=== PATIENT | male | born 1965 | race Caucasian/White ===

== ENCOUNTER 2019-05-03 07:32 | Day surgery (SDC) | payer OTHER ==
[2019-05-03] MEDS ORDERED: LIDOCAINE 2% (SDV) 5 ML INJ (10:36)
[2019-05-03] MEDS ORDERED: PROPOFOL 60 ML (10:36)
== END 2019-05-03 12:38 | disposition home or self-care (01) ==
LOC: GIL 07:32
DX: Z12.11 Encounter for screening for malignant neoplasm of colon (principal); K29.30 Chronic superficial gastritis without bleeding; D12.5 Benign neoplasm of sigmoid colon; K64.8 Other hemorrhoids; K21.9 Gastro-esophageal reflux disease without esophagitis; I10 Essential (primary) hypertension; E78.5 Hyperlipidemia, unspecified; E11.9 Type 2 diabetes mellitus without complications; Z79.84 Long term (current) use of oral hypoglycemic drugs
CPT/HCPCS: 43239; 82962; 88305; 88312